=== PATIENT | male | born 2000 | race African-American/Black ===

== ENCOUNTER 2022-12-14 00:50 | Emergency (ER) | payer MEDICAID ==
[~2022-12-14] VITALS: Ht 182.9 cm; Wt 104.5 kg
[2022-12-14 01:08] VITALS: O2SAT 99
[2022-12-14 02:33] VITALS: BP 123/76
[2022-12-14] MEDS ORDERED: KETOROLAC 60MG/2ML VIAL IM STA (02:33)
[2022-12-14] MEDS ORDERED: IBUP-2029 MT (05:49)
[2022-12-14] MEDS ORDERED: CYCL10TA21 MT (05:49)
[2022-12-14 06:00] VITALS: PULSE 73; RESP 18; TEMP 97.8
== END 2022-12-14 06:00 | disposition home or self-care (01) ==
LOC: ER 00:50
DX: S30.0XXA Contusion of lower back and pelvis, initial encounter (principal); S80.02XA Contusion of left knee, initial encounter; S09.90XA Unspecified injury of head, initial encounter; V49.9XXA Car occupant (driver) (passenger) injured in unspecified traffic accident, initial encounter; Y93.89 Activity, other specified; Y92.89 Other specified places as the place of occurrence of the external cause; Y99.8 Other external cause status
CPT/HCPCS: 70450; 72131; 73560; 96372; 99285; J1885; Z7610